=== PATIENT | female | born 1990 | race Caucasian/White ===

== ENCOUNTER → 2024-06-29 | Outpatient (REF) | payer OTHER | LOC: RAD 09:32 | PROVIDERS: ATTEND Student in an Organized Health Care Education/Training Program | DX: M54.2 Cervicalgia (principal); M54.50 Low back pain, unspecified; M79.642 Pain in left hand; M79.641 Pain in right hand; M25.562 Pain in left knee; M25.561 Pain in right knee; L40.9 Psoriasis, unspecified; Z22.7 Latent tuberculosis; K75.9 Inflammatory liver disease, unspecified; D89.89 Other specified disorders involving the immune mechanism, not elsewhere classified | CPT/HCPCS: 72040; 72110 ==